=== PATIENT | male | born 1960 | race African-American/Black ===

== ENCOUNTER 2021-04-30 07:10 | Emergency (ER) | payer OTHER ==
[2021-04-30 07:21] VITALS: BP 134/77; PULSE 80; TEMP 97.6; BMI 26.5
[2021-04-30] MEDS ORDERED: ACETAMINOPHEN 1000 MG/100 ML VIAL (NON FORMULARY) IVPB ONE (08:06)
[2021-04-30] MEDS ORDERED: ACETAMINOPHEN INJECTION 100 ML IVPB ONE (08:16)
[2021-04-30 08:17] LABS: BASO % 0.8 % (0-2.0); EOS % 3.7 % (0-4.5); HEMATOCRIT 37.3 % (35.4-49); HEMOGLOBIN 12.7 GM/dL (11.7-16.9); LYMPH % 48.1 % (8-40); MEAN CELL VOLUME 88.2 fl (80-96); MEAN PLT VOLUME 7.4 fl (7.5-11.1); MONO % 4.5 % (3.8-10.2); NEUT % 42.9 % (42.8-82.8); PLATELET COUNT 217 10^3/uL (134-434); RBC 4.22 M/mm3 (4.00-5.60); RDW 12.9 % (11.9-15.9); WHITE BLOOD COUNT 7.6 K/mm3 (4.0-10.0)
[2021-04-30 08:23] LABS: INR 1.12 (0.83-1.09); PROTHROMBIN TIME (PATIENT) 13.7 SEC (9.7-13.0)
[2021-04-30 08:32] LABS: CHLORIDE 109 mmol/L (98-107); SODIUM 139 mmol/L (136-145)
[2021-04-30 08:34] LABS: ANION GAP 7 MMOL/L (8-16); BLOOD UREA NITROGEN 14.3 mg/dL (7-18); CALCIUM 8.5 mg/dL (8.5-10.1); CO2 23 mmol/L (21-32)
[2021-04-30 08:35] LABS: GLUCOSE,RANDOM 90 mg/dL (74-106)
[2021-04-30 08:38] LABS: CREATININE 0.9 mg/dL (0.55-1.3); SGOT/AST 27 U/L (15-37); SGPT/ALT 39 U/L (13-61)
[2021-04-30 08:39] LABS: BILIRUBIN,TOTAL 0.4 mg/dL (0.2-1); TOT PROT 7.3 g/dl (6.4-8.2)
[2021-04-30 08:40] LABS: ALK PHOS 66 U/L (45-117)
== END 2021-04-30 10:49 | disposition home or self-care (01) ==
LOC: JER 07:10
PROC: 3E033NZ Introduction of Analgesics, Hypnotics, Sedatives into Peripheral Vein, Percutaneous Approach (ICD-10-PCS; principal; 2021-04-30)
DX: M54.2 Cervicalgia (principal); G44.319 Acute post-traumatic headache, not intractable
CPT/HCPCS: 36415; 70450-TC; 70486-TC; 71260-TC; 72125-TC; 74177-TC; 80053; 82550; 82553; 84484; 85025; 85610; 86850; 86900; 86901; 93005; 93010; 99285-25; J0131; Q9967

== ENCOUNTER 2024-02-26 14:21 | Emergency (ER) | payer OTHER ==
[2024-02-26 14:30] VITALS: BP 141/80; PULSE 77; RESP 18; TEMP 98; BMI 22.9
== END 2024-02-26 16:56 | disposition home or self-care (01) ==
LOC: JERFT 14:21
DX: M25.511 Pain in right shoulder (principal); Y99.0 Civilian activity done for income or pay
CPT/HCPCS: 73030-TC-RT-FY; 99283-25